=== PATIENT | female | born 1980 | race African-American/Black ===

== ENCOUNTER 2016-10-19 22:07 | Emergency (ER) | payer MEDICAID ==
[~2016-10-19] VITALS: Ht 162.6 cm; Wt 83.9 kg
[2016-10-19 22:21] VITALS: BP 140/68
--- NOTE | 2016-10-19 23:38 | NUR ---
Called to rm, no answer.
--- NOTE | 2016-10-20 00:11 | NUR ---
called to rm, no answer.
[2016-10-20] MEDS ORDERED: IBUPROFEN 400 MG TABLET PO ONE (03:00)
[2016-10-20] MEDS ORDERED: IBUPROFEN 400 MG TABLET ONE (03:04)
== END 2016-10-20 03:14 | disposition home or self-care (01) ==
LOC: ER 22:10
DX: M54.5 Low back pain (principal); I10 Essential (primary) hypertension; J45.909 Unspecified asthma, uncomplicated
CPT/HCPCS: A4606; Z7610